=== PATIENT | male | born 1970 | race Caucasian/White ===

== ENCOUNTER 2017-02-02 21:56 | Emergency (ER) | payer SELFPAY ==
[2017-02-02] MEDS ORDERED: DIPH,PERTUS(ACELL)TETVAC-LF 0.5 ML VIAL IM ONE (22:38)
[2017-02-02 22:46] VITALS: BP 152/90; PULSE 100; RESP 18; TEMP 98
--- NOTE | 2017-02-02 22:52 | ED ---
Extremity Problem HPI - General Stated complaint: Lac Finger/Axe Time Seen by Provider: 02/02/17 22:30 Source: patient, RN notes reviewed Mode of arrival: ambulatory Limitations: no limitations - History of Present Illness Initial comments: 46-year-old male presents emergency room chief complaint of left index finger laceration. Patient states that when asked today. Patient states the throbbing type pain to the distal aspect. Patient denies any changes in feeling. Patient denies any other injury from the incident. Patient does not know if his tetanus is up-to-date or not. Patient states she was concerned due to the continued throbbing of the cut. That he should be evaluated.Patient denies any recent fever, chills, shortness of breath, chest pain, back pain, abdominal pain, nausea vomiting, numbness or tingling, dysuria or hematuria, constipation or diarrhea, headaches or visual changes, or any other current symptoms. Review of Systems ROS Statement: Those systems with pertinent positive or pertinent negative responses have been documented in the HPI. ROS Other: All systems not noted in ROS Statement are negative. Past Medical History Additional Past Medical History / Comment(s): Arthritis History of Any Multi-Drug Resistant Organisms: None Reported Past Surgical History: Tonsillectomy Additional Past Surgical History / Comment(s): collar bone surgery Past Psychological History: No Psychological Hx Reported Smoking Status: Former smoker Past Alcohol Use History: None Reported Past Drug Use History: None Reported General Exam - General Exam Comments Initial Comments: General: The patient is awake and alert, in no distress, and does not appear acutely ill. Neck: The neck is supple, there is no tenderness. Cardiovascular: There is a regular rate and rhythm. No murmur, rub or gallop is appreciated. Respiratory: Lungs are clear to auscultation, respirations are non-labored, breath sounds are equal. No wheezes, stridor, rales, or rhonchi. Musculoskeletal: Patient has a 2+ pulses. Left upper extremity. Full range motion of left wrist and left hand. Patient does appear to 1.5 some yesterday laceration to the distal aspect of the second digit. Nail and nailbed are intact. Neurological: CN II-XII intact, There are no obvious motor or sensory deficits. Coordination appears grossly intact. Speech is normal. Skin: Skin is warm and dry and no rashes or lesions are noted. Psychiatric: Normal mood and affect. Limitations: no limitations Course Vital Signs 02/02/17 22:40 Temperature 98.0 F Pulse Rate 100 Respiratory 18 Rate Blood Pressure 152/90 O2 Sat by Pulse 98 Oximetry - Reevaluation(s) Reevaluation #1: 02/02/17 22:51 Patient was offered an x-ray of his finger which she refused. Procedures - Procedures Initial comment: The skin was anesthetized with 1% lidocaine. The laceration was then cleansed with Betadine and irrigated with normal saline. The wound was inspected, and there was no evidence of injury to deep structures. No foreign body was noted in the wound. A total of 2 skin sutures were placed utilizing 5-0 nylon to a distal index finger laceration of 1.5 cm circular. Medical Decision Making - Medical Decision Making 46-year-old male presents for left index finger laceration. At this time patient was. We discussed follow-up return parameters. We discussed all the patient's questions. He stated he understood the plan. He will be discharged home. Disposition Clinical Impression: Laceration of left index finger Disposition: HOME SELF-CARE Condition: Stable Instructions: Care For Your Stitches (ED) Additional Instructions: Please use medication as discussed. Please follow up with family doctor if symptoms have not improved over the next two days. Please return to the emergency room if your symptoms increase or worsen or for any other concerns. Please return to the emergency room in 8-10 days to have sutures removed. Please leave wound covered for the first 24-48 hours and then leave open to air after that time. Please use clean soap and water to clean the suture area to prevent scabbing over the top of your sutures. Please watch for any signs of infection which may include but not limited to increased pain, swelling, redness , fever or chills. Please return to the emergency room if any signs of infection do occur. Please return to the emergency room for any other concerns or complications. Referrals: Malissa Lorenzana MD [STAFF PHYSICIAN] - 1-2 days Time of Disposition: 22:51
== END 2017-02-02 23:07 | disposition home or self-care (01) ==
LOC: EC 21:56
DX: S61.211A Laceration without foreign body of left index finger without damage to nail, initial encounter (principal); Z87.891 Personal history of nicotine dependence; W26.9XXA Contact with unspecified sharp object(s), initial encounter
CPT/HCPCS: 12001; 90471; 90715; 99282